=== PATIENT | female | born 1950 | race Caucasian/White ===

== ENCOUNTER 2017-01-15 14:31 | Emergency (ER) | payer MEDICARE ==
[~2017-01-15] VITALS: Ht 170.2 cm; Wt 60.0 kg
[2017-01-15 14:33] VITALS: BP 179/67; PULSE 108; RESP 16; TEMP 98.3; O2SAT 97
--- NOTE | 2017-01-15 14:47 | PD ---
HPI Chief Complaint: Musculoskeletal Complaint Time Seen by Provider: 14:45 Travel History International Travel<30 days: No Contact w/Intl Traveler<30days: No Traveled to known affect area: No History of Present Illness HPI 66-year-old female with previous history of left hip replacement, with 3 previous left hip dislocation in the past, presents to the ER today because she states that she was getting up off with the beach chair when she felt like her hip went out again. She states she is not in pain as long as we don't move her left hip. Modifying Factors: None Associated Signs & Symptoms: Left hip injury Risk Factors: Previous left hip ORIF and dislocations PFSH Past Medical History Arthritis: Yes (RHEUMATOID) Immunizations Current: Yes Past Surgical History Hysterectomy: Yes Joint Replacement: Yes (LEFT HIP) Social History Alcohol Use: Yes (RARE) Tobacco Use: No Substance Use: No Allergies-Medications (Allergen,Severity, Reaction): Coded Allergies: No Known Allergies (Unverified , 01/15/17) Reported Meds & Prescriptions Reported Meds & Active Scripts Active Active Prescriptions or Reported Medications Unobtainable Review of Systems Except as stated in HPI: all other systems reviewed are Neg Physical Exam Narrative GENERAL: Well-developed elderly white female patient in mild distress. Awake and oriented 3. SKIN: Focused skin assessment warm/dry. HEAD: Atraumatic. Normocephalic. EYES: Pupils equal and round. No scleral icterus. No injection or drainage. ENT: No nasal bleeding or discharge. Mucous membranes pink and moist. NECK: Trachea midline. No JVD. CARDIOVASCULAR: Regular rate and rhythm. No murmur appreciated. RESPIRATORY: No accessory muscle use. Clear to auscultation. Breath sounds equal bilaterally. GASTROINTESTINAL: Abdomen soft, non-tender, nondistended. Hepatic and splenic margins not palpable. MUSCULOSKELETAL: No obvious deformities. No clubbing. No cyanosis. No edema. EXTREMITIES: No clubbing, cyanosis, or edema. Left leg is shortened and rotated with tenderness and decreased range of motion of the left hip.. Neurovascularly intact. Good pulses. NEUROLOGICAL: Awake and alert. No obvious cranial nerve deficits. Motor grossly within normal limits. Normal speech. PSYCHIATRIC: Appropriate mood and affect; insight and judgment normal. Data Data Last Documented VS Vital Signs Date Time Temp Pulse Resp B/P Pulse Ox O2 Delivery O2 Flow Rate FiO2 01/15/17 16:15 100 28 01/15/17 16:15 2.00 01/15/17 16:09 76 16 165/88 Nasal Cannula 01/15/17 14:33 98.3 Orders Hip, Uni(Ap&Lat) W Ap Pelvis (01/15/17 14:42) Etomidate Inj (Amidate Inj) (01/15/17 16:00) Hip, Uni(Ap&Lat) Wo Ap Pelvis (01/15/17 16:18) Splint Or Brace Apply/Monitor (01/15/17 16:32) MDM Medical Decision Making Medical Screen Exam Complete: Yes Emergency Medical Condition: Yes Medical Record Reviewed: Yes Interpretation(s) Last 24 hours Impressions Hip and Pelvis X-Ray 01/15/17 1442 Signed Impressions: Service Date/Time: Sunday, January 15, 2017 15:25 - CONCLUSION: Dislocated femoral component to the total hip arthroplasty. Jeff Holden MD Differential Diagnosis Left hip injuryfractures versus dislocations Narrative Course X-ray confirms hip dislocation and hip was reduced under conscious sedation. X- ray confirmation of reduction was done. Patient is placed in a knee immobilizer. She will need to follow-up with her orthopedics doctor. Return for new issues as needed. Procedures Procedure Narrative After the risks and benefits were discussed the following procedure was performed: MODERATE SEDATION: The patient was placed on a bus driver/monitor and pulse oximetry. An ambu bag and suction was immediately available at bedside. The patient was monitored by the nurse. Oxygen saturation, heart rate and blood pressure were monitored. Procedural sedation was acheived using 20 mg of etomidate. The patient was observed until awake and alert. Procedural Sedation time in attendance was 10 minutes. The left hip was reduced via the Tucker Technique. Successful reduction was confirmed with x-ray. Patient tolerated procedure well. Diagnosis Primary Impression: Hip dislocation, left Med/Other Pt SpecificInfo: Prescription(s) given Scripts Hydrocodone-Acetaminophen (Lortab)5-325 Mg Tab1 Tab PO Q6H PRN (PAIN) #15 TAB Ref 0 Prov:Shaquille Lentz MD 01/15/17 Disposition: 01 DISCHARGE HOME Condition: Stable Shaquille Lentz MD Jan 15, 2017 14:46
--- NOTE | 2017-01-15 15:44 | RADRPT ---
EXAM DATE/TIME: 01/15/2017 15:25 [facility] COMPARISON: No previous studies available for comparison. INDICATIONS : Left hip pain after getting up out of chair today MEDICAL HISTORY : None. SURGICAL HISTORY : Left total hip replacement ENCOUNTER: Initial ACUITY: 1 day PAIN SCORE: 10/10 LOCATION: Left entire hip FINDINGS: Examination of the left hip was performed with AP Pelvis. The patient's had a total hip arthroplasty. The femoral component is superiorly dislocated from the acetabular component. I do not see any evide nce of a fracture. The bony pelvis is unremarkable. CONCLUSION: Dislocated femoral component to the total hip arthroplasty. Jeff Holden MD on January 15, 2017 at 15:41 Board Certified Radiologist. This report was verified electronically.
[2017-01-15] MEDS ORDERED: ETOMIDATE 20 MG/10 ML VIAL IV PUSH ONE (16:00)
[2017-01-15 16:09] VITALS: BP 165/88; PULSE 76; RESP 16; O2SAT 100
[2017-01-15 16:15] VITALS: O2SAT 100; O2SAT 99
[2017-01-15] MEDS ORDERED: HYDR-3533 PO (16:59)
--- NOTE | 2017-01-15 17:00 | RADRPT ---
EXAM DATE/TIME: 01/15/2017 16:41 [facility] COMPARISON: No previous studies available for comparison. INDICATIONS : Post reduction left hip dislocation MEDICAL HISTORY : None. SURGICAL HISTORY : Left total hip replacement ENCOUNTER: Initial ACUITY: 1 day PAIN SCORE: 0/10 LOCATION: Left entire hip FINDINGS: A two view examination of the left hip was performed. The patient's left total hip arthroplasty now r educed. No acute fracture seen. CONCLUSION: Unremarkable examination of the left hip status post left total hip arthroplasty. Jeff Holden MD on January 15, 2017 at 16:58 Board Certified Radiologist. This report was verified electronically.
[2017-01-15 17:07] VITALS: BP 176/77; PULSE 78; RESP 16; O2SAT 97
== END 2017-01-15 17:22 | disposition home or self-care (01) ==
LOC: PHED 14:31
DX: T84.021A Dislocation of internal left hip prosthesis, initial encounter (principal)
CPT/HCPCS: 27265; 73502; 99152; 99285; L1830